=== PATIENT | male | born 1985 | race Caucasian/White ===

== ENCOUNTER 2024-05-22 07:47 | Emergency (ER) | payer BC, SELFPAY ==
[2024-05-22] VITALS (21 sets, daily range): BP systolic 124–166; BP diastolic 71–122
--- NOTE | 2024-05-22 08:16 | ED.GENMED ---
History of Present Illness
General
Chief Complaint: Chest Pain
Source: patient
Exam Limitations: none
Time Seen by Provider: 05/22/24 08:16
Nursing documentation reviewed up to this point in time: agreed with
History of Present Illness
History of Present Illness:
39-year-old male presents emergency department due to chest tightness for the past week. He was seen at [facility] last week and had a reported by the patient negative cardiac and PE workup. He was given a Z-Trip, he is not sure what it was for. He
coughed up blood twice today. He states his symptoms went away, but then came back yesterday.
Past History
Past History
ED Past Medical History: GERD
ED Past Surgical History: Other (Bilateral jaw surgery)
Social History
Tobacco: Vaping
Alcohol: Occasional
Drug: Marijuana
Personal:
Living: with family
Employment: Employed
Review of Systems
Review of Systems
Allergies reviewed?: Yes
All Other Systems: Not applicable
Constitutional: Reports no symptoms
EENT: Reports no symptoms
Respiratory: Reports trouble breathing
Cardiac: Reports chest pain
ABD/GI: Reports no symptoms
: Reports no symptoms
Musculoskeletal: Reports no symptoms
Skin: Reports no symptoms
Neurological: Reports no symptoms
Endocrine: Reports no symptoms
Hematologic/Lymphatic: Reports no symptoms
Psychiatric: Reports no symptoms
Phy Exam
Physical Exam
Physical Exam:
Physical Exam
General: no apparent distress, not acutely ill
Neck: supple. no meningeal signs. normal posterior pharynx
Heart: s1/s2 regular rate and rhythm, no murmur. equal radial
pulses.
HEENT: Pupils equal round reactive to light, EOMI
Lungs: no acute respiratory distress. Mild wheezing in upper lung adams bilaterally
Abdomen: normal bowel sounds. not tender. no CVAT
Neuro: alert and oriented. no focal neurological deficits cranial nerves II through XII intact
Skin: no rash
Psychiatric: well kept. interactive and cooperative
Extremities: no edema. no calf tenderness. negative homans. good distal pulses
Scores
Heart Score for Chest Pain Patients
STEMI patient?: No
History: Moderately Suspicious
ECG: Normal
Age: </= 45 years
Risk Factors: 1 or 2 Risk Factors
Troponin: >1 - <3 x Normal Limit
Heart Score for Chest Pain Patients: 3
Heart Score Risk: 2.5% MACE over next 6 weeks
Course
Orders/Labs/Results
Orders:
Orders
05/22/24 07:48
EKG [Electrocardiogram (*1)] Urgent
Reason for Study: Chest Pain
EKG- Treatment ONCE
05/22/24 07:59
CXR2 [CR Chest - 2 Views ] Urgent
Comment:
Reason For Exam: chest pain
05/22/24 08:34
IV Insert/Care/Rem.- Treatment PRN
Ipratropium/Albuterol Sulfate [Duoneb] 3 ml INH R NOW STA
05/22/24 08:43
Complete Blood Count/With Diff Urgent
Comprehensive Metabolic Panel Urgent
D-Dimer Urgent
Troponin I Urgent
05/22/24 09:23
Aspirin Chewable [Low Strength Aspirin] 324 mg PO NOW STA
05/22/24 09:36
COVID-19 Antigen Urgent
Source: Nasal Swab
Influenza A+B Rapid Molecular Urgent
ZAIN Source: Nasal Swab
Specimen Description:
05/22/24 09:38
Records Request [Obtain Records] As Directed
Dates of Information to be Released: Most recent
Type of Information Requested: Discharge Summary
ECG/Cardiology Results
Obtain Records from: [facility]
05/22/24 09:39
Echo 2D MMode Color/Doppler Routine
Reason for Study: Chest pain
Comment: Covid and flu pending, can wait for result
05/22/24 10:28
Nitroglycerin Sublingual [Nitrostat (Sublingual)] 0.4 mg SL [id number] PRN
05/22/24 10:45
EKG [Electrocardiogram (*1)] Routine
Reason for Study: Chest Pain
Comment: With troponin level
05/22/24 10:47
NT-proBNP Urgent
Comment: ADD ON
Troponin I Urgent
05/22/24 11:30
Nitroglycerin Sublingual [Nitrostat (Sublingual)] 0.4 mg SL NOW STA
05/22/24 11:31
Ondansetron Injectable [Zofran] 4 mg IV NOW STA
05/22/24 11:50
Add On- LAB Urgent
Tests Added?: proBNP
05/22/24 13:12
Metoprolol [Lopressor] 5 mg IV NOW STA
05/22/24 13:31
Furosemide [Lasix] 20 mg IV ONCE ONE
Lisinopril [Zestril] 5 mg PO NOW STA
05/22/24 13:57
Metoprolol [Lopressor] 12.5 mg PO NOW STA
05/22/24 20:00
Metoprolol [Lopressor] 12.5 mg PO BID
Abnormal Lab Results
05/22/24 05/22/24
08:43 10:47
WBC 4.4 L 10^3/uL
(4.8-10.8)
Monocytes % 10.9 H %
(1.7-9.3)
Creatinine 0.5 L mg/dL
(0.7-1.3)
Glucose 105 H mg/dl
(70-99)
AST 112 H U/L
(17-59)
ALT 232 H U/L
(0-50)
Troponin I 0.073 H* ng/ml 0.066 H* ng/ml
05/22/24 08:43
05/22/24 08:43
Vital Signs
Initial and Last Documented VS:
Initial Vital Signs
Temp Pulse Resp BP Pulse Ox
97.8 F 96 18 166/122 98
05/22/24 07:49 05/22/24 07:49 05/22/24 07:49 05/22/24 07:49 05/22/24 07:49
Last Documented Vital Signs
Temp Pulse Resp BP Pulse Ox
97.8 F 105 23 148/114 98
05/22/24 07:49 05/22/24 15:15 05/22/24 15:15 05/22/24 15:10 05/22/24 07:49
MDM/Problems Addressed
Differential Diagnosis Includes:
ACS, PE, cardiomyopathy
MDM/Problems Addressed:
39-year-old male with chest pain, echocardiogram showing diffuse hypokinesis with a EF 40%. Patient seen by cardiology, Dr. Parker, who recommends further inpatient management. Patient however, declines admission and elects to sign out AMA. Will
prescribe lisinopril and metoprolol. Follow-up with primary care and cardiology.
Acute Exacerbation and/or Progression of Chronic Illness: Cardiomyopathy
*Radiology
Radiology exam reviewed: radiology read reviewed (Chest x-ray no acute findings)
*Pulse Oximetry
Patient hypoxic: no
*EKG
Interpreted by ED Provider?: Yes
EKG Intrepretation Date: 05/22/24
EKG Intrepretation Time: 07:52
Interpretation: abnormal
Comparison EKG: no comparison EKG present
Heart Rate: 88
Rate: normal
Rhythm: sinus
[place]: normal axis
Interval: normal interval
QRS Pattern: normal QRS
Ischemia: non-specific ST changes
*Steward/Stewardess Economy Class Interpretation
Rate: tachycardiac
Interpretation: abnormal
Heart Rate: 105
Rhythm: sinus tachycardia
*Critical Care Note
Total Time (30-74mins, 75-104mins- exclusive of procedures): 30
comment:
Critical care statement: A total of 30 minutes of critical care time was provided for this patient. This includes management of unstable vital signs, evaluation of the patient at bedside, reviewing the patient's pertinent medical records, discussion
with consultants, review of old EKGs and review of pertinent medical records. This time with separate from time utilized to perform the aforementioned documented procedures
Patient Management
Social determinants of health affecting care: Living situation, Substance abuse and Strong social support
Discussion with other providers: Wastewater Analyst Lab Analyst (Cardiology, Dr. Parker)
Escalation/DeEscalation of care consider admission/obs:
Admission indicated, however patient elects to leave AGAINST MEDICAL ADVICE
ED Attending Note
-
Portions of this chart may have been created with voice recognition software.� Occasional wrong word or��sound alike� substitutions may have occurred due to the inherent limitations of voice recognition software.
Discharge Plan
Departure
Patient Disposition: Against Medical Advice
Date of Disposition: 05/22/24
Time of Disposition: 15:37
Patient with high blood pressure during this ER visit?: Yes
Condition: Fair
Discharge Problem:
Chest pain
Instructions: Chest pain, BLOOD PRESSURE
Prescriptions:
New
lisinopril 5 mg tablet
5 mg PO DAILY Qty: 30 0RF
metoprolol tartrate 25 mg tablet
12.5 mg PO BID Qty: 30 0RF
Referrals:
Chava Parker MD [Active] - Call in 1-3 days for appt
Burak Vogt MD [Family Provider] - Call in 1-3 days for appt
Interventions
Interventions:
*Risk Screen - Suicide Last Done: 05/22/24 07:49
*General Assessment Last Done: 05/22/24 08:46
*Neglect/Abuse Screening Last Done: 05/22/24 07:49
*ED- Fall Risk Assessment Last Done: 05/22/24 08:46
*ED COVID-19 Vaccine History Last Done: 05/22/24 07:49
ED- Cardiac Assessment Last Done: 05/22/24 08:45
Discharge Date and Time
Print Language: FAROESE
[2024-05-22] MEDS: DUONEB 3 ML INH (08:43)
[2024-05-22 09:05] LABS: % Basophils 0.5 % (0-2); % Eosinophils 2.1 % (0-6); % Immature Granulocytes 0.2 % (0-0.5); % Lymphocytes 32.6 % (20.5-51.1); % Monocytes 10.9 % (1.7-9.3); % Neutrophils 53.7 % (42.2-75.2); Absolute Eosinophils 0.1 10^3/uL (0-0.7); Absolute Lymphocytes 1.4 10^3/uL (1.2-3.4); Absolute Monocytes 0.5 10^3/uL (0.1-0.6); Absolute Neutrophils 2.4 10^3/uL (1.4-6.5); D-Dimer 0.37 ug/mlFEU (0.00-0.50); Hematocrit 43.1 % (39.0-52.0); Hemoglobin 14.5 g/dL (13.0-18.0); Mean Corp Hgb Conc. 33.6 g/dL (33.0-37.0); Mean Corpuscular Hgb 29.7 pg (27.0-31.0); Mean Corpuscular Volume 88.3 fL (80.0-94.0); Mean Platelet Volume 10.4 fL (7.4-10.4); Nucleated Red Blood Cells % 0 % (-); Platelet Count 173 10^3/uL (130-400); Red Blood Cell Count 4.88 10^6/uL (4.70-6.10); Red Cell Dist. Width 14.1 % (11.5-14.5); White Blood Cell Count 4.4 10^3/uL (4.8-10.8)
[2024-05-22 09:08] LABS: ALT (SGPT) 232 U/L (0-50); AST (SGOT) 112 U/L (17-59); Albumin 4.7 g/dl (3.5-5.0); Alkaline Phosphatase 64 U/L (38-126); Blood Urea Nitrogen 19 mg/dl (9-20); Calcium 9.1 mg/dl (8.4-10.2); Carbon Dioxide 25 mmol/L (22-30); Chloride 102 mmol/L (98-107); Glucose 105 mg/dl (70-99); Sodium 140 mmol/L (135-145); Total Bilirubin 0.9 mg/dl (0.2-1.3); Total Protein 6.6 g/dl (6.3-8.2); eGFR > 60.00
[2024-05-22 09:22] LABS: Troponin I 0.073 ng/ml
[2024-05-22] MEDS: LOW STRENGTH ASPIRIN 324 MG PO (09:35)
[2024-05-22 10:10] LABS: COVID-19 Antigen Negative (Negative)
--- NOTE | 2024-05-22 10:13 | CON.CAR ---
Addendum entered and electronically signed by Chava Parker MD 05/22/24 10:54:
I saw and examined the patient.
The LODE MINER's note was reviewed and I agree with the note.
39-year-old male who presents with midsternal chest sensation says it feels like pressure and almost feels like he needs to bring up sputum. In addition he feels like he cannot take in a deep breath. Patient had similar symptoms 1 week ago and
went to [facility] his evaluation included a CT study which was reportedly negative for PE there was a question of whether the saw the hint of something in the right upper chest per his report was placed on antibiotics he says his symptoms
spontaneously resolved while he was in the ER and he felt fine the whole week until yesterday when he had recurrence of the chest sensation that was present all day long also sometimes felt like he needed to take a deep breath and today he felt like
he had sputum there he needed to cough up he coughed up some sputum with streaks of blood. He said some of the samples were half blood have sputum. No large volumes of blood with clot. No fever or other symptoms. No prior history of lung disease
and no prior history of cardiac disease. Blood pressure is elevated in the ER he says it is always high when he sees doctors or goes to the ER. ECG with nonspecific T wave abnormality labs notable for troponin 0.073 also elevated LFTs with AST
greater than 100 ALT greater than 200. Patient does drink alcohol a number of days per week. Commonly will have 2 drinkswhich sound like 4 servings of alcohol
-
Chest discomfort. Etiology unclear. Patient has some symptoms including cough with streaks of sputum which sound pulmonary in origin also reported to have faint wheezing on arrival and received neb treatment. Reportedly with a negative CT for PE
at [place] last week. Troponin mildly possibility of cardiac related chest discomfort also consideration. Would proceed as follows
-Obtain records from [place] including recent CT scan
-Check serial troponin including early troponin
-PPI
-Echocardiogram
-Treatment of hypertension
-Additional assessment of cough and hemoptysis as directed by primary team
.
Abnormal troponin. Etiology unclear. Evaluation noted above. Can continue aspirin but would hold off on addition of IV heparin with report of blood in sputum.
.
Cough.
- Chest x-ray unremarkable.
-COVID-negative
-Obtain prior CT
-Additional assessment by hospitalist
.
HTN -
- treatment initiated by ER will assess response
.
Elevated LFTs. Exact etiology unclear. Alcohol use may contribute. Patient did have some alcohol yesterday. Viral illness may also contribute
-Continue to monitor
-Additional assessment directed by hospitalist
Original Note:
Consultation
Consultation Request
Date/Time Consultation Requested: 05/22/2024 09:10
Date/Time Consultation Performed: 05/22/2024 09:45
Requesting Provider: Dr. Soriano
Performing Provider: MEAGAN Lang for Dr. Parker
Reason for Consultation: Shortness of breath
Medical History
-
Chief Complaint: Shortnes fo breath
History of Present Illness:
Kit Bermudez is a 39 year old year old male who presents with shortness of breath. He feels like there is a weight on his chest. This started yesterday. Nothing makes the discomfort better or worse. He had two episodes of hemoptysis at home prior
to arrival. He endorses a moist non productive cough.
He was seen at [place] last week (records requested). He had a PE study which he reports was negative. He is unsure of his discharge diagnosis. He was given a Z-Trip which he completed.
Past Medical History
Past Medical History: None
Social History
Tobacco: Vaping
Alcohol: Occasional
Drug: None
Personal: Partner (Engaged)
Employment: Employed (Teacher)
Family History
Family History: Reviewed & Not Pertinent (Denies early CAD and SCD.)
Allergies / Home Medications
Allergy/AdvReac Type Severity Reaction Status Date / Time
No Known Allergies Allergy Verified 05/22/24 07:58
�Medication �Instructions �Recorded �Confirmed �Type
No Meds [No Current Medications] 05/22/24 05/22/24 History
Review of Systems
-
History Source: Patient
All other systems: Negative unless noted
Constitutional: No Symptoms
EENT: No Symptoms
Respiratory: Cough, Hemoptysis and Trouble Breathing
Cardiac: Chest Pain ('heaviness')
Abdomen/GI: No Symptoms
: No Symptoms
Musculoskeletal: No Symptoms
Skin: No Symptoms
Neurological: No Symptoms
Endocrine: No Symptoms
Hematologic/Lymphatic: No Symptoms
Physical Exam
Vital Signs
Temp Pulse Resp BP Pulse Ox
97.8 F 75 16 162/120 98
05/22/24 07:49 05/22/24 09:45 05/22/24 10:04 05/22/24 09:38 05/22/24 07:49
Lab Results
05/22/24 08:43
05/22/24 08:43
Troponin I 0.073 ng/ml H* 05/22/24 08:43
Physical Exam
General: Well Developed, Well Nourished, No Apparent Distress and Comfortable
HEENT: Normocephalic, Anicteric and Moist Mucous Membranes
Respiratory: Clear and Non Labored Respirations
Cardiac: S1/S2 and Regular Rhythm; Negative Peripheral Edema
Breast: Deferred by me
GI: Soft, Non Tender, Non Distended and Normal Bowel Sounds
Rectal: Deferred by Provider
Genito-urinary: No Costovertebral Tender
Musculoskeletal: No Clubbing and No Cyanosis
Skin: Warm and Dry
Neuro: AO x 3
Hematologic/Lymphatic: No Lymphadenopathy
Psych: Calm
Impression / Plan
-
Shortness of breath
-No hypoxia
-Negative PE study last week
-CXR unremarkable
-Influenza & Covid 19 pending
-TTE pending
Abnormal troponin, type unknown
-Trend to peak
-EKG with troponin
HTN - NEW DIAGNOSIS per patient
-SL ordered
Transaminitis, denies abdominal pain
Data Reviewed
-
EKG: Report Reviewed by me
Labs: Labs Reviewed by me
Old Records: Requested
[2024-05-22] MEDS: NITROSTAT (SUBLINGUAL) 0.4 MG SL ×3 (10:30→11:41)
[2024-05-22 11:21] LABS: Troponin I 0.066 ng/ml
[2024-05-22] MEDS: ZOFRAN 4 MG IV (11:42)
[2024-05-22 13:06] LABS: NT-proBNP 611 pg/ml
[2024-05-22] MEDS: LOPRESSOR 5 MG IV (13:16)
[2024-05-22] MEDS: ZESTRIL 5 MG PO (14:33)
[2024-05-22] MEDS: LOPRESSOR 12.5 MG PO (14:34)
[2024-05-22] MEDS: LASIX 20 MG IV (14:34)
== END 2024-05-22 16:00 | disposition left against medical advice (07) ==
LOC: EMR 07:47
PROVIDERS: Nurse Practitioner Gerontology; EMERGENCY PHYSICIAN Emergency Medicine; FAMILY PHYSICIAN Family Medicine; OTHER PHYSICIAN Internal Medicine Cardiovascular Disease
DX: R07.89 Other chest pain (principal); I10 Essential (primary) hypertension; Z11.52 Encounter for screening for COVID-19; Z53.29 Procedure and treatment not carried out because of patient's decision for other reasons; F17.290 Nicotine dependence, other tobacco product, uncomplicated
CPT/HCPCS: 99291; 96374; 96375; 94640; 71046; 80053; 83880; 84484; 85025; 85379; 87502; 87811; 93005; 93306

== ENCOUNTER 2024-05-23 10:44 | Inpatient (IN) | payer BC, SELFPAY ==
[2024-05-23] VITALS (8 sets, daily range): BP systolic 92–153; BP diastolic 50–109; BMI 29.9; BMI 28.8
--- NOTE | 2024-05-23 08:25 | ED.GENMED ---
History of Present Illness
General
Chief Complaint: Chest Pain
Source: patient and records
Exam Limitations: none
Time Seen by Provider: 05/23/24 08:11
Nursing documentation reviewed up to this point in time: agreed with
History of Present Illness
History of Present Illness:
39-year-old male returns seen here yesterday with chest pain 2 indeterminate troponins, echocardiogram seen by cardiology apparently left AGAINST MEDICAL ADVICE had shortness of breath a week ago seen at [place] had a CT of the chest which was
reportedly negative he drinks alcohol does not smoke had chest pain yesterday no fever or chills, mild leg edema
Past History
Past History
ED Past Medical History: GERD
ED Past Surgical History: Other (Bilateral jaw surgery)
Social History
Tobacco: Vaping
Alcohol: Occasional
Drug: Marijuana
Personal:
Living: with family
Employment: Employed
Family History
Family History: Negative CAD or Sudden
Review of Systems
Review of Systems
All Other Systems: Not applicable
Constitutional: Reports fatigue
Respiratory: Denies cough or trouble breathing
Cardiac: Reports no symptoms
ABD/GI: Reports no symptoms
: Reports no symptoms
Phy Exam
Physical Exam
Physical Exam:
Physical Exam
General: no apparent distress, not acutely ill
Neck: No jaw
Heart: Tachycardia
Lungs: Crackles at the
Abdomen: Nontender
Neuro: alert and oriented. no focal neurological deficits
Skin: no rash
Psychiatric: well kept. interactive and cooperative
Extremities: Trace edema
Scores
Heart Score for Chest Pain Patients
STEMI patient?: Not applicable
Course
Orders/Labs/Results
Orders:
Orders
05/23/24 08:07
EKG [Electrocardiogram (*1)] Urgent
Reason for Study: CAD
Other Reason for Exam: elevated troponin yesterday
EKG- Treatment ONCE
05/23/24 08:17
Complete Blood Count/With Diff Urgent
Comprehensive Metabolic Panel Urgent
Magnesium Urgent
Troponin I Urgent
05/23/24 08:28
Aspirin 325 mg PO NOW STA
CR Chest - 2 Views Urgent
Comment:
Reason For Exam: cp
05/23/24 08:29
CARDIOLOGY CONSULT Routine
Consulting Provider: Ignacio Martinez
Was physician already notified: Yes
05/23/24 08:40
Furosemide [Lasix] 40 mg IV NOW STA
Vital Signs
Initial and Last Documented VS:
Initial Vital Signs
Temp Pulse Resp BP Pulse Ox
98.6 F 104 16 123/91 96
05/23/24 08:01 05/23/24 08:01 05/23/24 08:01 05/23/24 08:01 05/23/24 08:01
Last Documented Vital Signs
Temp Pulse Resp BP Pulse Ox
98.6 F 104 16 123/91 96
05/23/24 08:01 05/23/24 08:01 05/23/24 08:01 05/23/24 08:01 05/23/24 08:01
MDM/Problems Addressed
Differential Diagnosis Includes:
ACS cardiomyopathy ischemic nonischemic viral
MDM/Problems Addressed:
Abnormal troponin abnormal echocardiogram
*Radiology
Radiology exam reviewed: preliminary read by ED provider
*Pulse Oximetry
Patient hypoxic: no
*EKG
Interpreted by ED Provider?: Yes
Interpretation: abnormal
Comparison EKG: no changes
Heart Rate: 98
Rate: normal
Rhythm: sinus
Ischemia: T-wave inversion
*Merit System Director Interpretation
Rate: tachycardiac
Interpretation: abnormal
Heart Rate: 104
Rhythm: sinus
*Critical Care Note
Total Time (30-74mins, 75-104mins- exclusive of procedures): Not Applicable
Data Reviewed
Review of Other/Old Records Reveals: Labs
Source: patient, records and physician
Update Note
Update Note:
Update patient with new cardiomyopathy hypertension he does drink alcohol LFTs were up briefly reviewed with cardiology recommended admission to the hospitalist service will be worked up currently he had CT scan recently at [place] will try to
track that down
ED Attending Note
-
Portions of this chart may have been created with voice recognition software.� Occasional wrong word or��sound alike� substitutions may have occurred due to the inherent limitations of voice recognition software.
Discharge Plan
Departure
Patient Disposition: Admit
Date of Disposition: 05/23/24
Time of Disposition: 08:46
Admit to: Telemetry
Presentation/result/management discussed w/ accepting MD/DO: Hospitalist
Patient with high blood pressure during this ER visit?: Yes
Condition: Fair
Discharge Problem:
CHF (congestive heart failure)
Prescriptions:
No Action
lisinopril 5 mg tablet
5 mg PO DAILY Qty: 30 0RF
metoprolol tartrate 25 mg tablet
12.5 mg PO BID Qty: 30 0RF
Referrals:
Burak Vogt MD [Family Provider] -
Interventions
Interventions:
*Risk Screen - Suicide Last Done: 05/23/24 08:01
*Neglect/Abuse Screening Last Done: 05/23/24 08:01
Discharge Date and Time
Print Language: ALBANIAN
[2024-05-23] MEDS: ASPIRIN 325 MG PO (09:05)
[2024-05-23 09:23] LABS: % Basophils 0.5 % (0-2); % Eosinophils 0.3 % (0-6); % Immature Granulocytes 0.3 % (0-0.5); % Lymphocytes 10.6 % (20.5-51.1); % Monocytes 7.6 % (1.7-9.3); % Neutrophils 80.7 % (42.2-75.2); Absolute Lymphocytes 0.8 10^3/uL (1.2-3.4); Absolute Monocytes 0.6 10^3/uL (0.1-0.6); Absolute Neutrophils 6.2 10^3/uL (1.4-6.5); Hematocrit 44.2 % (39.0-52.0); Hemoglobin 14.8 g/dL (13.0-18.0); Mean Corp Hgb Conc. 33.5 g/dL (33.0-37.0); Mean Corpuscular Hgb 29.6 pg (27.0-31.0); Mean Corpuscular Volume 88.4 fL (80.0-94.0); Mean Platelet Volume 10.6 fL (7.4-10.4); Nucleated Red Blood Cells % 0 % (-); Platelet Count 176 10^3/uL (130-400); Red Cell Dist. Width 14.2 % (11.5-14.5); White Blood Cell Count 7.7 10^3/uL (4.8-10.8)
[2024-05-23 09:33] LABS: ALT (SGPT) 248 U/L (0-50); AST (SGOT) 163 U/L (17-59); Albumin 4.8 g/dl (3.5-5.0); Alkaline Phosphatase 53 U/L (38-126); Blood Urea Nitrogen 34 mg/dl (9-20); Calcium 9.2 mg/dl (8.4-10.2); Carbon Dioxide 26 mmol/L (22-30); Chloride 98 mmol/L (98-107); Estimated Creatinine Clearance 79 ml/min; Glucose 173 mg/dl (70-99); Magnesium 1.6 mg/dl (1.6-2.3); Potassium 3.7 mmol/L (3.5-5.1); Sodium 138 mmol/L (135-145); Total Protein 6.8 g/dl (6.3-8.2); eGFR > 60.00
[2024-05-23 09:50] LABS: Troponin I 0.053 ng/ml
--- NOTE | 2024-05-23 10:06 | CM ---
Patient seen at bedside in ED with physician. patient stated that he lives with his fiance in a 3 story home. Patient has no prior need for DME, VN needs. Patient PCP is Dr. Vogt and he uses the [facility] on if needed for pharmacy needs. Patient
denied any needs at this time. CM will continue to follow for discharge planning needs.
Plan; home with no needs anticipated
--- NOTE | 2024-05-23 10:09 | HPS.HSE ---
Family Physician
-
Family Physician: Burak Vogt
Chief Complaint
-
Chest tightness, shortness of breath
History of Present Illness
Patient is a 39-year-old male who was seen in the emergency room yesterday 05/22/2024 for chest tightness and shortness of breath. During his ED workup he was found to have a depressed ejection fraction of 40% and thought to be having new onset
congestive heart failure. Patient was recommended for admission however, he left AGAINST MEDICAL ADVICE. Patient stated that he had a meeting for work that he HAD to attend. He returns today with the same complaints and presents for admission.
Medical History
Past Medical History
Past Medical History: Reports None
Past Surgical History: Reports Other
Additional Past Surgical History:
Jaw surgery in 2007
Social History
Tobacco: Non-smoker
Alcohol: Other (Patient admits to a few drinks daily a few nights a week)
Drug: None
Personal: Other (Engaged)
Living: With Family
Employment: Employed
Family History
Family History: Other (Father of cancer in 2008 history of coronary artery disease or sudden cardiac )
Allergies / Home Medications
Allergies reflects when Allergies were last updated in [employer].
Home Medications with original date entered in [employer]
Allergy/Medication List:
Allergies
Allergy/AdvReac Type Severity Reaction Status Date / Time
No Known Allergies Allergy Verified 05/23/24 08:00
Home Medications
lisinopril 5 mg tablet 5 mg PO DAILY 05/23/24
metoprolol tartrate 25 mg tablet 12.5 mg PO BID 05/23/24
Review of Systems
-
History Source: Patient
A 12 point ROS was completed and negative except as noted: Yes
Constitutional: Reports No Symptoms
EENT: Reports No Symptoms
Respiratory: Reports Trouble Breathing
Cardiac: Reports Chest Pain (Describes as tightness)
Abdomen/GI: Reports No Symptoms
: Reports No Symptoms
Musculoskeletal: Reports No Symptoms
Skin: Reports No Symptoms
Neurological: Reports No Symptoms
Hematologic/Lymphatic: Reports No Symptoms
Psych: Reports No Symptoms
Physical Exam
Vital Signs
Vital Signs
Temp Pulse Resp BP Pulse Ox
98.6 F 84 14 102/56 96
05/23/24 08:01 05/23/24 09:45 05/23/24 09:45 05/23/24 09:32 05/23/24 08:01
Physical Exam
General: Well Developed, Well Nourished and No Apparent Distress
HEENT: NormoCephalic and Anicteric; No Oxygen
Respiratory: Clear; No Wheezes, Rales, Rhonchi or Crackles
Cardiac: S1/S2 and Regular Rhythm; No Murmur
GI: Soft, Non Tender, Non Distended and Normal Bowel Sounds
Musculoskeletal: No Clubbing, No Cyanosis and No Edema
Skin: Warm
Neuro: Awake and Alert
Psych: Calm
Laboratory Results
-
05/23/24 09:14
05/23/24 09:14
Laboratory Results
Total Bilirubin 1.0 mg/dl (0.2-1.3) 05/23/24 09:14
AST 163 U/L (17-59) H 05/23/24 09:14
ALT 248 U/L (0-50) H 05/23/24 09:14
Alkaline Phosphatase 53 U/L (38-126) 05/23/24 09:14
Troponin I 0.053 ng/ml H* 05/23/24 09:14
Impression/Plan
-
pt is a 39 year old male
New onset cardiomyopathy/heart failure with mildly reduced ejection fraction--possibly due to alcohol--ADMIT to tele--echocardiogram was done yesterday in the emergency department--would hold on further diuresis given his creatinine is now 1.4--will
add metoprolol with parameters--consult cardiology
Acute kidney injury--this is likely a combination of Lasix, lisinopril, metoprolol that he received yesterday in the emergency department along with relative hypotension as a result--blood pressure systolic is not above 100 consistently so we will
hold medications or provide parameters--would consider small dose of normal saline--also consider renal consult
Alcohol use--patient states that he drinks a few drinks daily a few nights per week--he says that this is not a daily occurrence and has no issues if he does not drink alcohol--this very well may be the cause of his cardiomyopathy--we will add
thiamine and folate--I do not believe he needs MSAS protocol at this time--no evidence of DTs
DVT prophylaxis--Lovenox
CODE STATUS--full code
--- NOTE | 2024-05-23 10:11 | EDRN ---
Provider notifoied of critical value troponin.
[2024-05-23] MEDS: NSS 250 IV (10:43)
--- NOTE | 2024-05-23 11:21 | W.PN.CD ---
Addendum entered and electronically signed by Ignacio Martinez MD 05/23/24 17:01:
I saw and examined the patient.
The AFFILIATE MARKETING SPECIALIST's note was reviewed and I agree with the note.
Comment: He is feeling better returned to complete his work up of new CMY. He appears euvolemic and given EDYTA with his correction BP and fluid removal. Will arrange R/LHC tomorrow. Start GDMT as able. Holding ACEI due to edyta. In evaluation of
etiologies will check tox screen. Recommend an Cardiac MRI if cath normal as an outpatient.
Original Note:
Today's Communication / Plan
-
-adjust metoprolol to XL
-RHC and LHC in AM if renal function improved
Impression / Plan
-
Patient is a 39 year old year old male with no previous PMH, but went to [facility] about 1 week ago for SOB and was placed on antibiotic course. Then, he had SOB again Tuesday- Tuesday. There were reports of hemoptysis as well. He denies any CP for
me, he just says it felt in his chest like he can't get a good breath. He came to the ER yesterday. His BP was severely elevated. He was given nitro, metoprolol, lisinopril, and Lasix. His EF was seen to be 40%. He left AMA since he had to get to
something for work. He is now back and feeling fine. No more SOB. BP on low end and getting small bolus of fluids. Will request records from [facility].
Cardiomyopathy EF 40%:
-type unknown
-denies family hx SCD or early CAD. Does not use tobacco. Occasionally vapes marijuana. Denies hx HTN, DM, HLD. Check lipids and hgbA1C. Normally active without issue.
-needs ischemic evaluation, but would not do today with EDYTA- will plan for tomorrow pending AM labs
-GDMT as able (holding off on ACEI/ARB/ARNI/MRA right now with EDYTA). Will adjust metoprolol to XL, and keep hold parameters.
-does not appear overloaded. Per radiology report today, pulmonary edema resolved.
-will check urine tox screen for completeness
Abnormal troponin:
-type unknown
-trending down
-0.073 was highest
-eval as above
EDYTA:
-after getting IV lasix, ACEI, BB, nitro and now BP's on low end
-getting gentle fluids, hold off on lasix and ACEI for now
Elevated LFT's:
-ETOH-related?
-follow
ETOH:
-reports ETOH 4-5 days per week with 2-3 mixed drinks
-we reviewed that abstinence is best
BP issues:
-severely elevated yesterday, now on low end
-monitor here and adjust meds as appropriate
Physical Exam
Vital Signs/Labs
Vital Signs
Temp Pulse Resp BP Pulse Ox
98.6 F 73 20 95/67 96
05/23/24 08:01 05/23/24 10:00 05/23/24 10:00 05/23/24 10:00 05/23/24 08:01
05/22/24 05/23/24 05/24/24
06:59 06:59 06:59
Actual Weight 99.79 kg
05/23/24 09:14
05/23/24 09:14
Magnesium 1.6 mg/dl (1.6-2.3) 05/23/24 09:14
LAB Results
05/23/24
09:14
Troponin I 0.053 H*
Physical Exam
Constitutional: No acute distress
EENT: Anicteric
Cardiovascular: Rhythm & rate is regular
Respiratory: Respiratory effort normal and Lungs clear to auscul.
Neuro/Psych: AO x 3
Data Reviewed
-
Date of Service: May 23, 2024
EKG: Tracing Personally Visualized and interpreted (SR with )
Labs: Labs Reviewed by me
[2024-05-23] MEDS: VITAMIN B1 100 MG PO (11:53)
[2024-05-23] MEDS: FOLVITE 1 MG PO (11:53)
[2024-05-23 12:36] LABS: NT-proBNP 804 pg/ml
[2024-05-23 13:37] LABS: Amphetamines Negative (Negative); Barbiturates Negative (Negative); Benzodiazepines Negative (Negative); Buprenorphine Negative (Negative); Cocaine Negative (Negative); Marijuana Negative (Negative); Methadone Positive (Negative); Methamphetamines Negative (Negative); Opiates Negative (Negative); Phencyclidine Negative (Negative); Tricyclic Antidepressants Negative (Negative)
[2024-05-23 14:01] LABS: Fentanyl, Urine Negative (Negative)
[2024-05-23] MEDS: TOPROL XL 25 MG PO (14:03)
[2024-05-23 16:22] LABS: Troponin I 0.048 ng/ml
[2024-05-23 22:00] LABS: Troponin I 0.046 ng/ml
[2024-05-23] MEDS: ATIVAN 1 MG PO (22:32)
[2024-05-24] VITALS (15 sets, daily range): BP systolic 136–163; BP diastolic 95–118; BMI 28.0
[2024-05-24 03:06] LABS: Hematocrit 46.3 % (39.0-52.0); Hemoglobin 15.8 g/dL (13.0-18.0); Mean Corp Hgb Conc. 34.1 g/dL (33.0-37.0); Mean Corpuscular Hgb 30.1 pg (27.0-31.0); Mean Corpuscular Volume 88.2 fL (80.0-94.0); Platelet Count 184 10^3/uL (130-400); Red Blood Cell Count 5.25 10^6/uL (4.70-6.10); Red Cell Dist. Width 13.8 % (11.5-14.5); White Blood Cell Count 6.5 10^3/uL (4.8-10.8)
[2024-05-24 03:33] LABS: ALT (SGPT) 211 U/L (0-50); AST (SGOT) 96 U/L (17-59); Albumin 4.2 g/dl (3.5-5.0); Alkaline Phosphatase 50 U/L (38-126); Blood Urea Nitrogen 32 mg/dl (9-20); Calcium 9.8 mg/dl (8.4-10.2); Carbon Dioxide 28 mmol/L (22-30); Chloride 101 mmol/L (98-107); Estimated Creatinine Clearance > 125 ml/min; Glucose 94 mg/dl (70-99); HDL Cholesterol 90 mg/dl; LDL Cholesterol, Calculated 130 mg/dl; Magnesium 1.9 mg/dl (1.6-2.3); Potassium 4.2 mmol/L (3.5-5.1); Sodium 138 mmol/L (135-145); Total Bilirubin 1.6 mg/dl (0.2-1.3); Total Cholesterol 233 mg/dl (50-199); Total Protein 6.4 g/dl (6.3-8.2); Triglyceride 65 mg/dl (10-149); Very Low Density Lipoprotein 13 mg/dl (0-30); eGFR > 60.00
[2024-05-24 03:53] LABS: Troponin I 0.058 ng/ml
[2024-05-24 04:01] LABS: TSH Reflex To Free T4 4.87 uIU/ml (0.47-4.68)
[2024-05-24 04:32] LABS: Free T4 1.11 ng/dl (0.78-2.19)
--- NOTE | 2024-05-24 04:45 | PTCARENOTE ---
Notified House Provider Argelia Rdz about pt's troponin bump of 0.058, up from previous ones. No new orders at this time.
--- NOTE | 2024-05-24 07:09 | W.PN.CD ---
Today's Communication / Plan
-
Cardiac catheterization today.
Drum Tender regarding EtOH, illicit drug use given GDMT.
MSAS if not already in place.
Impression / Plan
-
Impression/Plan: 39 y/o male with some shortness in breath, now improved, found to have systolic cardiomyopathy and elevated troponin.
#Cardiomyopathy
-New diagnosis.
-LVEF 40%
-Type unknown, denies family hx SCD or early CAD. Does not use tobacco. Occasionally vapes marijuana. Denies hx HTN, DM, HLD. Check lipids and hgbA1C. Normally active without issue.
-GDMT as able (holding off on ACEI/ARB/ARNI/MRA right now with EDYTA). Will adjust metoprolol to XL, and keep hold parameters.
-does not appear overloaded. Per radiology report today, pulmonary edema resolved.
-UDS + for methadone. If he does have a history of drug abuse, we must be cautious about medication choices (i.e. no beta tammy for cocaine use).
-Cath today.
#Abnormal troponin:
-Acute, without chest pain.
-Stuttering pattern without consistent rise/fall.
-0.073 was highest.
-Ischemic evaluation as above.
#EDYTA:
-Resolved.
#Elevated LFT's:
-Presumably acute (or at least never documented).
-AST/ALT trending down, bilirubin up to 1.6 this morning.
#ETOH:
-Chroni, reports ETOH 4-5 days per week with 2-3 mixed drinks.
-He will now require absolute EtOH abstinence.
-He appears tremulous. I suspect he may be going into withdrawal.
#BP issues:
-Stabilizing.
-He is a little hypertensive.
Subjective/Interval History:
Weight is down 2.5 kg from yesterday in the absence of diuretics.
Moderately hypertensive this morning (150's).
Stuttering, low level troponin.
CXR shows resolution of pulmonary edema pattern.
UDS is positive for methadone.
DATA:
Transthoracic Echocardiogram, 05/23/2024:
CONCLUSIONS
Mild to moderately reduced left vVentricular systolic function.
Estimated Left ventricular ejection fraction is 40% .
Mild mitral regurgitation.
Trace tricuspid regurgitation.
Physical Exam
Vital Signs/Labs
Vital Signs
Temp Pulse Resp BP Pulse Ox
36.6 C 107 16 152/113 100
05/24/24 03:00 05/24/24 03:00 05/24/24 03:00 05/24/24 03:00 05/24/24 03:00
05/22/24 05/23/24 05/24/24
11:59 11:59 11:59
Actual Weight 98.928 kg 96.36 kg
05/24/24 02:37
05/24/24 02:37
Magnesium 1.9 mg/dl (1.6-2.3) 05/24/24 02:37
Triglycerides 65 mg/dl (10-149) 05/24/24 02:37
LDL Cholesterol, Calc 130 mg/dl 05/24/24 02:37
VLDL Cholesterol, Calc 13 mg/dl (0-30) 05/24/24 02:37
HDL Cholesterol 90 mg/dl 05/24/24 02:37
Free T4 1.11 ng/dl (0.78-2.19) 05/24/24 02:37
05/23/24
09:14
Qkv-E-Qhougrqvone Pept 804
LAB Results
05/23/24 05/23/24 05/23/24
09:14 15:30 21:15
Troponin I 0.053 H* 0.048 H* 0.046 H*
05/24/24
02:37
Troponin I 0.058 H* D
Physical Exam
Constitutional: Comfortable and Other (Appears mildly tremulous.)
EENT: Anicteric and Moist mucous membranes
Cardiovascular: Rhythm & rate is regular, Pedal edema is absent, JVD pressure is normal, S1S2 is normal and Murmur/rub/gallop absent
Respiratory: Respiratory effort normal, Lungs clear to auscul., Wheeze Absent, Crackles Absent and Rhonchi Absent
GI: Soft, Distention absent, Flat, Non tender and Normal bowel sounds
Neuro/Psych: AO x 3
Data Reviewed
-
Date of Service: May 24, 2024
Medical Decision Making: Reviewed Test Results, Independent Historian Assessment and Test Interpretation
EKG: Tracing Personally Visualized and interpreted and Report Reviewed by me
Echo: Report Reviewed by me
X-Ray/CT/US/MRI/NUC/PET: Image Personally Visualized and interpreted and Report Reviewed by me
Labs: Labs Reviewed by me
Old Records: Reviewed
[2024-05-24] MEDS: VITAMIN B1 100 MG PO (07:36)
[2024-05-24] MEDS: LOW STRENGTH ASPIRIN 81 MG PO (07:36)
[2024-05-24] MEDS: TOPROL XL 25 MG PO ×2 (07:37→20:30)
[2024-05-24] MEDS: FOLVITE 1 MG PO (07:37)
[2024-05-24 09:20] LABS: Glycohemoglobin (HgbA1c) 5.4 % (4.0-5.6)
--- NOTE | 2024-05-24 09:34 | PN.CDI ---
CDI
- -
CDI:
Physician Documentation Request
Admit Date: 05/23/24 10:44
Dear Doctor Joel,
Please review the following and provide your response in the progress notes.
Clinical Indicators:
Laboratory Tests
05/23/24 05/23/24 05/23/24
09:14 15:30 21:15
Troponin I 0.053 H* 0.048 H* 0.046 H*
05/24/24
02:37
Troponin I 0.058 H* D
Based on the above and your clinical assessment, please clarify in the progress notes, the appropriate diagnosis, if significant, that supports the above abnormalities and additional evaluation, monitoring and/or treatment rendered:
Non ischemic myocardial injury
Abnormal lab value, clinically insignificant
Other(please specify)
Use of terms such as suspected, likely, concern for, or probable (associated with a specific diagnosis that is being evaluated, monitored, or treated as if it exists) are acceptable and can be coded in the inpatient setting, when documented at the
time of discharge.
Thank you,
Abigail Beckham RN BSN CCDS
CDI Specialist
Please contact via tiger text
Please use your independent medical judgment in providing your response.
--- NOTE | 2024-05-24 10:26 | W.PN.HOSP.TC ---
Today's Communication/Plan
-
await cardiac cath
Assessment / Plan
Assessment / Plan
pt is a 39 year old male
New onset cardiomyopathy/heart failure with mildly reduced ejection fraction--possibly due to alcohol---echocardiogram was done 05/22 in the emergency department EF 40%--will add metoprolol with parameters--apprec cardiology--for cardiac cath today
abnormal troponin--too early to say what the cause is as hasn't had his cardiac cath yet
Acute kidney injury--this is likely a combination of Lasix, lisinopril, metoprolol that he received 05/22 in the emergency department along with relative hypotension as a result--s/p small dose of normal saline--resolved back to baseline
Alcohol use--patient states that he drinks a few drinks daily a few nights per week--he says that this is not a daily occurrence and has no issues if he does not drink alcohol--this very well may be the cause of his cardiomyopathy--we will add
thiamine and folate--I do not believe he needs MSAS protocol at this time--no evidence of DTs
DVT prophylaxis--Lovenox
CODE STATUS--full code
Anticipated Discharge: Within 24 hours
Subjective/Interval History
-
Date of Service: May 24, 2024
pt feels OK--waiting for cath
Objective Data
-
Labs:
Laboratory Results
05/24/24
02:37
WBC 6.5
Hgb 15.8
Hct 46.3
Plt Count 184
Sodium 138
Potassium 4.2
Chloride 101
Carbon Dioxide 28
BUN 32 H
Creatinine 0.7
Glucose 94
Calcium 9.8
Total Bilirubin 1.6 H
AST 96 H
ALT 211 H
Alkaline Phosphatase 50
Vital Signs:
max temp for 24 hours
05/23/24
19:25
Temp 98.5 F
Vital Signs
Temp Pulse Resp BP Pulse Ox
97.9 F 94 18 147/111 99
05/24/24 07:29 05/24/24 07:37 05/24/24 07:29 05/24/24 07:37 05/24/24 07:29
I&O
05/23/24 05/24/24 05/25/24
06:59 06:59 06:59
Intake Total 500 / 500
Output Total 1135 / 1135
Balance -635 / -635
Review of Systems
-
All other systems: Reviewed and negative
Physical Exam
-
General: Well Developed, Well Nourished and No Apparent Distress
HEENT: Normocephalic and Atraumatic
Respiratory: Clear to Auscultation; Negative Wheezes or Rhonchi
Cardiac: Regular Rhythm and S1/S2; Negative Murmur
GI: Soft, Nontender, Nondistended and Normal Bowel Sounds
Musculoskeletal: No Clubbing, No Cyanosis and No Edema
Neuro: Awake and Alert
Psych: Calm
--- NOTE | 2024-05-24 10:27 | CM ---
Addendum entered by Symone Noyola 05/24/24 16:11:
farxiga 40$ for 30 day supply and 80$ for 3 month same for Jardiance. CM updated patient family.
Original Note:
Patient seen at bedside with physician. Patient for cardiac cath today. Patient stated that he was hoping for discharge home today. CM will continue to follow for discharge planning needs.
Plan; home with no needs
--- NOTE | 2024-05-24 12:00 | ITS.CL.CATH ---
Co Director - Catheterization
Cardiac Catheterization
Procedure Report:
CARDIAC CATHETERIZATION REPORT
Date of Procedure: 05/24/2024
Referring: Abigail Martinez M.D.
Indication: New cardiomyopathy.
PROCEDURE:
1. Right heart catheterization.
2. Coronary angiography.
3. Left heart catheterization.
4. Administration of IV metoprolol for paroxysmal supraventricular tachycardia.
A total of 14 minutes of procedural/moderate sedation was utilized. An independent medical lab director was present to assist with and help manage the patient's level of consciousness and physiologic status.
ACCESS:
1. 6 [place] right rate artery using a modified Seldinger technique.
2. 5 [place]ian right antecubital vein through a previously placed IV.
CATHETERS:
1. 5 [place]itanian balloon wedge.
2. 5 [place]ian JR4.
3. 5 [place]ian JL 3.5.
HEMODYNAMIC DATA
Weight (kg): 92.6
AO (s/d/x, mmHg): 155/118/135
LV (s/x, mmHg): 156/15 (A wave to 29)
PCWP (a/v/x, mmHg): 32/34/24
PA (s/d/x, mmHg): 43/23/30
RV (s/x, mmHg): 43/6
RA (a/v/x, mmHg): 11/8/6
SVC SvO2 (%): 79.3
IVC SvO2 (%): Not obtained.
RA SvO2 (%): Not obtained.
RV SvO2 (%): Not obtained.
PA SvO2 (%): 73.3
SaO2 (%): 98.3
Hbg (g/dL): 14.9
WERNER
CO (L/min): 5.78
CI (L/min/m2): 2.62
Thermodilution
CO (L/min): Not performed.
CI (L/min/m2): Not performed.
TPG (mmHg): 6
PVR (Whitlock Units): 1.04
SVR (dynes*seconds*cm^-5): 1785
AVO2 Diff (Volume %): 5.07
AV gradient (x, mmHg): None.
AV area (cm2): Normal.
MV gradient (x, mmHg): Not obtained.
MV area (cm2): Not obtained.
LEFT VENTRICULOGRAPHY: Not performed.
AORTOGRAPHY: Not performed.
CORONARY ANGIOGRAPHY
Dominance: Right.
Left Main: Large size, bifurcating vessel. There is no coronary artery disease.
LAD: Enormous vessel giving rise to 2 significant diagonals before wrapping around the apex and supplying the inferior interventricular septum. There is no coronary artery disease.
Ramus: Congenitally absent.
Circumflex: Large size, nondominant vessel giving rise to 2 obtuse marginals. OM1 is a 2 mm vessel arising very high off of the circumflex. OM 2 is a large vessel supplying the majority of the lateral and inferolateral wall. There is no
coronary artery disease.
RCA: Large size, dominant vessel with an anterior origin that is difficult to cannulate and a large posterolateral branch. There is no coronary artery disease.
INTERVENTIONS
1. IV metoprolol for termination of paroxysmal supraventricular tachycardia.
Narrative:
During the procedure, the patient lapsed into a narrow complex, reentrant tachycardia on telemetry. He did admit to palpitations but was hemodynamically stable. The patient was given 5 mg of IV metoprolol with adenosine on standby. Approximately
6 minutes after infusing the metoprolol, the patient's heart rhythm resolved into normal sinus rhythm.
Closure Device: Vascular band for the right radial artery, manual pressure for the right antecubital vein.
Radiation dose (mGy): 331.85
DAP (cm2.Gy): 21.5440
Fluoroscopy time (minutes): 4.5
CONCLUSIONS:
1. Right dominant circulation with an anterior origin of the RCA that is difficult to cannulate and no coronary artery disease.
2. Significant diastolic dysfunction with discrepant filling pressures (LVEDP = 15 mmHg, PCWP = 24 mmHg, A wave to 29 mmHg) without significant valvular disease.
3. Preserved systolic function (cardiac index = 2.62 L/min/m�).
4. Mild, postcapillary pulmonary hypertension (mean PA = 30 mmHg, cardiac output = 5.78 L/min, PVR = 1.04 Whitlock units).
5. Significant peripheral arterial resistance (SVR = 1785 dynes*seconds*cm^-5).
6. Paroxysmal supraventricular tachycardia, terminated with metoprolol.
RECOMMENDATIONS:
1. Expectant management after cardiac catheterization via right radial/antecubital approach.
2. Limited weight bearing on the right wrist for one week.
3. GDMT as hemodynamics will tolerate. His heart rate/systolic function will benefit from beta-blockade. SVR will benefit from KRITSIAN inhibitor/ARB/ARNI. LV rigidity will benefit from SGLT2 inhibitors.
4. Careful monitoring with anticipation of alcohol withdrawal. I informed him that he must be entirely abstinent.
Copy to: Abigail Martinez M.D., Burak Vogt M.D.
Gustavo Cassidy DO, FACC, FACP
[2024-05-24] MEDS: NSS (PRESERVATIVE FREE) 0.25 ML IV ×2 (13:25→20:35)
[2024-05-24] MEDS: ATIVAN 0.5 MG IV ×2 (13:25→20:35)
[2024-05-24] MEDS: APRESOLINE 5 MG IV ×2 (17:05→20:30)
[2024-05-24] MEDS: ATIVAN 1 MG PO (18:04)
[2024-05-24 18:08] LABS: GGTP 178 U/L (15-73); Magnesium 1.8 mg/dl (1.6-2.3); Phosphorus 3.4 mg/dl (2.5-4.5)
[2024-05-24 18:14] LABS: B-Hydroxybutyrate 1.13 mmol/L (0.02-0.27)
[2024-05-24 18:24] LABS: INR 0.89; PT 12.6 Sec (11.4-14.6)
--- NOTE | 2024-05-24 21:00 | PTCARENOTE ---
Pt transferred to IVU via wheelchair with belongings. Handoff of monitored pt performed.
[2024-05-25] VITALS (13 sets, daily range): BP systolic 130–145; BP diastolic 90–114; BMI 28.0
[2024-05-25] MEDS: APRESOLINE IV ×3 (00:39→20:58)
[2024-05-25 05:44] LABS: Blood Urea Nitrogen 27 mg/dl (9-20); Calcium 9.8 mg/dl (8.4-10.2); Carbon Dioxide 26 mmol/L (22-30); Chloride 101 mmol/L (98-107); Estimated Creatinine Clearance > 125 ml/min; Glucose 113 mg/dl (70-99); Sodium 138 mmol/L (135-145); eGFR > 60.00
[2024-05-25] MEDS: APRESOLINE 5 MG IV ×3 (05:50→17:26)
[2024-05-25] MEDS: DIOVAN 40 MG PO (08:04)
[2024-05-25] MEDS: VITAMIN B1 100 MG PO (08:04)
[2024-05-25] MEDS: TOPROL XL 50 MG PO ×2 (08:04→20:56)
--- NOTE | 2024-05-25 08:58 | W.PN.CD ---
Today's Communication / Plan
-
restart metop and valsartan
renal artery u/s
Impression / Plan
-
Impression/Plan: 39 y/o male with some shortness in breath, now improved, found to have systolic cardiomyopathy and elevated troponin.
#Cardiomyopathy
-New diagnosis.
-LVEF 40%
-Type unknown, denies family hx SCD or early CAD. Does not use tobacco. Occasionally vapes marijuana. Denies hx HTN, DM, HLD. Check lipids and hgbA1C. Normally active without issue.
-GDMT as able (holding off on ACEI/ARB/ARNI/MRA right now with EDYTA). Will adjust metoprolol to XL, and keep hold parameters.
-does not appear overloaded. Per radiology report today, pulmonary edema resolved.
-UDS + for methadone. If he does have a history of drug abuse, we must be cautious about medication choices (i.e. no beta tammy for cocaine use).
-Cath no obstructive CAD diastolic dysfunction as below
- starting BB and valsartan
- pricing [id number]
#Abnormal troponin:
-Acute, without chest pain.
-Stuttering pattern without consistent rise/fall.
-0.073 was highest.
-Ischemic evaluation as above.
#EDYTA:
-Resolved.
#Elevated LFT's:
-Presumably acute (or at least never documented).
-AST/ALT trending down, bilirubin up to 1.6 this morning.
#ETOH:
-Chroni, reports ETOH 4-5 days per week with 2-3 mixed drinks.
-He will now require absolute EtOH abstinence.
-He appears tremulous. I suspect he may be going into withdrawal.
#BP issues:
-Stabilizing.
-Remains hypertensive starting BB and valsartan
- r/o renal artery stenosis
Subjective/Interval History:
Feeling much improved todya
DATA:
Cath May 24 2024: CONCLUSIONS:
1. Right dominant circulation with an anterior origin of the RCA that is difficult to cannulate and no coronary artery disease.
2. Significant diastolic dysfunction with discrepant filling pressures (LVEDP = 15 mmHg, PCWP = 24 mmHg, A wave to 29 mmHg) without significant valvular disease.
3. Preserved systolic function (cardiac index = 2.62 L/min/m�).
4. Mild, postcapillary pulmonary hypertension (mean PA = 30 mmHg, cardiac output = 5.78 L/min, PVR = 1.04 Whitlock units).
5. Significant peripheral arterial resistance (SVR = 1785 dynes*seconds*cm^-5).
6. Paroxysmal supraventricular tachycardia, terminated with metoprolol.
Transthoracic Echocardiogram, 05/23/2024:
CONCLUSIONS
Mild to moderately reduced left vVentricular systolic function.
Estimated Left ventricular ejection fraction is 40% .
Mild mitral regurgitation.
Trace tricuspid regurgitation.
Physical Exam
Vital Signs/Labs
Vital Signs
Temp Pulse Resp BP Pulse Ox
97.9 F 90 20 138/105 97
05/25/24 07:09 05/25/24 08:04 05/25/24 07:09 05/25/24 08:04 05/25/24 07:09
05/24/24 05/25/24 05/26/24
06:59 06:59 06:59
Actual Weight 212 lb 7 oz 211 lb 13.828 oz
05/24/24 02:37
05/25/24 04:52
PT 12.6 Sec (11.4-14.6) 05/24/24 17:44
INR 0.89 05/24/24 17:44
APTT 23.0 Sec (23.4-35.0) L 05/24/24 17:44
Magnesium 1.8 mg/dl (1.6-2.3) 05/24/24 17:44
Triglycerides 65 mg/dl (10-149) 05/24/24 02:37
LDL Cholesterol, Calc 130 mg/dl 05/24/24 02:37
VLDL Cholesterol, Calc 13 mg/dl (0-30) 05/24/24 02:37
HDL Cholesterol 90 mg/dl 05/24/24 02:37
Free T4 1.11 ng/dl (0.78-2.19) 05/24/24 02:37
05/23/24
09:14
Mzs-Q-Onmtwwggrim Pept 804
LAB Results
05/23/24 05/23/24 05/23/24
09:14 15:30 21:15
Troponin I 0.053 H* 0.048 H* 0.046 H*
05/24/24
02:37
Troponin I 0.058 H* D
Physical Exam
Constitutional: No acute distress and Comfortable
EENT: Anicteric
Cardiovascular: Rhythm & rate is regular and Pedal edema is absent
Respiratory: Respiratory effort normal and Lungs clear to auscul.
GI: Soft
Neuro/Psych: AO x 3
Other: Cath Site (soft )
Data Reviewed
-
Date of Service: May 25, 2024
Medical Decision Making: Reviewed Test Results
EKG: Tracing Personally Visualized and interpreted (sr)
Echo: Report Reviewed by me
Labs: Labs Reviewed by me
[2024-05-25 09:52] LABS: Troponin I 0.039 ng/ml
--- NOTE | 2024-05-25 10:15 | PTCARENOTE ---
Rec'd pt at handoff. Tele- SR. Pt has no complaints at this time. Plan of care reviewed w/ pt. Verbalizes understanding. Currently in bed; call candace w/in reach.
[2024-05-25] MEDS: FOLVITE 1 MG PO (10:31)
--- NOTE | 2024-05-25 10:43 | W.PN.HOSP.TC ---
Today's Communication/Plan
-
renal artery US
cont adjusting meds
hopeful d/c in AM Sat
Assessment / Plan
Assessment / Plan
pt is a 39 year old male
New onset cardiomyopathy/heart failure with mildly reduced ejection fraction--possibly due to alcohol---echocardiogram was done 05/22 in the emergency department EF 40%--adjusting metoprolol and valsartan with parameters--apprec cardiology-- cardiac
cath without obstructive CAD
nonischemic myocardial injury --peaked at 0.073
Acute kidney injury--this is likely a combination of Lasix, lisinopril, metoprolol that he received 05/22 in the emergency department along with relative hypotension as a result--s/p small dose of normal saline--resolved back to baseline
Alcohol use--patient states that he drinks a few drinks daily a few nights per week--he says that this is not a daily occurrence and has no issues if he does not drink alcohol--this very well may be the cause of his cardiomyopathy--cont thiamine and
folate--MSAS added with HTN, tachycardia, anxiety, mild tremors--early DTs --has been getting intermittent ativan
HTN--possibly secondary--getting renal artery US
DVT prophylaxis--Lovenox
CODE STATUS--full code
Anticipated Discharge: Within 24 hours
Subjective/Interval History
-
Date of Service: May 25, 2024
pt without c/o--much calmer today
Objective Data
-
Labs:
Laboratory Results
05/25/24
04:52
Sodium 138
Potassium 4.0
Chloride 101
Carbon Dioxide 26
BUN 27 H
Creatinine 0.7
Glucose 113 H
Calcium 9.8
Vital Signs:
max temp for 24 hours
05/24/24
23:04
Temp 98.4 F
Vital Signs
Temp Pulse Resp BP Pulse Ox
97.9 F 78 20 130/98 97
05/25/24 07:09 05/25/24 10:00 05/25/24 07:09 05/25/24 09:42 05/25/24 07:09
I&O
05/24/24 05/25/24 05/26/24
06:59 06:59 06:59
Intake Total 500 / 500 480 / 480
Output Total 1135 / 1135 925 / 925
Balance -635 / -635 -445 / -445
Review of Systems
-
All other systems: Reviewed and negative
Physical Exam
-
General: Well Developed, Well Nourished and No Apparent Distress
HEENT: Normocephalic and Atraumatic
Respiratory: Clear to Auscultation; Negative Wheezes or Rhonchi
Cardiac: Regular Rhythm and S1/S2; Negative Murmur
GI: Soft, Nontender, Nondistended and Normal Bowel Sounds
Musculoskeletal: No Clubbing, No Cyanosis and No Edema
Skin: Warm
Neuro: Awake
Psych: Calm
--- NOTE | 2024-05-25 10:55 | CM ---
Priced Farxiga and Jardiance per consult.
Prior CM had completed pricing.
Per note, estimated co payment is $40/mo.
Pt. would qualify for reduced monthly co pay of $10 (Jardiance) or $0 (Farxiga). Will place coupon in chart.
TT to Cardio MD to notify.
--- NOTE | 2024-05-25 13:47 | CM ---
CM following for DC planning needs.
Met w/ patient at bedside. Mother also present.
Reviewed estimated cost of Yenni Cabrera. Will place coupons in chart for use upon DC.
There are no other identified DC needs.
CM will, however, continue to follow for any needs that may arise.
--- NOTE | 2024-05-25 20:44 | PTCARENOTE ---
Pt received at beginning of shift sitting up in chair with family at bedside. Denies any CP at present time. VSS. Afebrile. SR/ST on CM. Right radial dressing c/d/i. Right brachial dressing intact + ecchymotic. Rest of assessment as documented. Pt
anxious to leave tomorrow. Call maria within reach. Will continue to monitor.
[2024-05-25] MEDS: ATIVAN 0.5 MG IV (21:02)
[2024-05-25] MEDS: NSS (PRESERVATIVE FREE) 0.25 ML IV (21:03)
[2024-05-25] MEDS: FLUSH (NSS) 2 FLUSH IV (21:03)
--- NOTE | 2024-05-25 23:10 | PTCARENOTE ---
Pt received at beginning of shift sitting up in chair with family at bedside. Denies any CP at present time. VSS. Afebrile. SR/ST on CM. Right radial dressing not intact. Site c/d/i. Pt does not want new dressing reapplied. Right brachial dressing
intact + ecchymotic. Rest of assessment as documented. Pt anxious to leave tomorrow. Call maria within reach. Will continue to monitor.
[2024-05-26 01:06] VITALS: BP 134/101
[2024-05-26] MEDS: APRESOLINE 5 MG IV ×2 (01:07→08:30)
[2024-05-26 04:13] VITALS: BMI 27.8
[2024-05-26 04:16] VITALS: BP 128/95
[2024-05-26] MEDS: APRESOLINE IV (04:41)
[2024-05-26 04:46] LABS: Hematocrit 44.1 % (39.0-52.0); Mean Corpuscular Hgb 29.6 pg (27.0-31.0); Mean Corpuscular Volume 87.2 fL (80.0-94.0); Mean Platelet Volume 10.8 fL (7.4-10.4); Platelet Count 192 10^3/uL (130-400); Red Blood Cell Count 5.06 10^6/uL (4.70-6.10); Red Cell Dist. Width 13.7 % (11.5-14.5); White Blood Cell Count 5.9 10^3/uL (4.8-10.8)
[2024-05-26 05:12] LABS: ALT (SGPT) 234 U/L (0-50); AST (SGOT) 117 U/L (17-59); Albumin 4.2 g/dl (3.5-5.0); Alkaline Phosphatase 51 U/L (38-126); Blood Urea Nitrogen 24 mg/dl (9-20); Calcium 9.6 mg/dl (8.4-10.2); Carbon Dioxide 23 mmol/L (22-30); Chloride 104 mmol/L (98-107); Estimated Creatinine Clearance > 125 ml/min; Glucose 110 mg/dl (70-99); Magnesium 1.9 mg/dl (1.6-2.3); Potassium 3.9 mmol/L (3.5-5.1); Sodium 137 mmol/L (135-145); Total Bilirubin 1.4 mg/dl (0.2-1.3); Total Protein 6.3 g/dl (6.3-8.2); eGFR > 60.00
--- NOTE | 2024-05-26 07:19 | PTCARENOTE ---
pt received from outgoing RN, pt in bed, aaox4, vss, nsr-st, ra, no gtts, independent assist, pending am round by physician, potential dc to home later today.
[2024-05-26 07:30] VITALS: BP 130/93
--- NOTE | 2024-05-26 08:27 | W.PN.HOSP.TC ---
Today's Communication/Plan
-
d/c if OK with cardiology
Assessment / Plan
Assessment / Plan
pt is a 39 year old male
New onset cardiomyopathy/heart failure with mildly reduced ejection fraction--possibly due to alcohol---echocardiogram was done 05/22 in the emergency department EF 40%--adjusting metoprolol and valsartan with parameters--apprec cardiology-- cardiac
cath without obstructive CAD
nonischemic myocardial injury due to acute heart failure--peaked at 0.073
Acute kidney injury--this is likely a combination of Lasix, lisinopril, metoprolol that he received 05/22 in the emergency department along with relative hypotension as a result--s/p small dose of normal saline--resolved back to baseline
Alcohol use--patient states that he drinks a few drinks daily a few nights per week--he says that this is not a daily occurrence and has no issues if he does not drink alcohol--this very well may be the cause of his cardiomyopathy--cont thiamine and
folate--MSAS added with HTN, tachycardia, anxiety, mild tremors--early DTs now resolved--has been getting intermittent ativan
HTN--possibly secondary-- renal artery US neg for stenosis
DVT prophylaxis--Lovenox
CODE STATUS--full code
Anticipated Discharge: Today
Subjective/Interval History
-
Date of Service: May 26, 2024
pt without c/o--would like to go home or at very least participate in GO discussion about his aunt hospitalized here on 4th floor
Objective Data
-
Labs:
Laboratory Results
05/26/24
04:36
WBC 5.9
Hgb 15.0
Hct 44.1
Plt Count 192
Sodium 137
Potassium 3.9
Chloride 104
Carbon Dioxide 23
BUN 24 H
Creatinine 0.6 L
Glucose 110 H
Calcium 9.6
Total Bilirubin 1.4 H
AST 117 H
ALT 234 H
Alkaline Phosphatase 51
Vital Signs:
max temp for 24 hours
05/25/24
23:04
Temp 98.7 F
Vital Signs
Temp Pulse Resp BP Pulse Ox
97.5 F 68 18 130/93 99
05/26/24 07:30 05/26/24 08:00 05/26/24 07:30 05/26/24 07:30 05/26/24 07:30
I&O
05/25/24 05/26/24 05/27/24
06:59 06:59 06:59
Intake Total 480 / 480 900 / 900
Output Total 925 / 925
Balance -445 / -445 900 / 900
Review of Systems
-
All other systems: Reviewed and negative
Physical Exam
-
General: Well Developed, Well Nourished and No Apparent Distress
HEENT: Normocephalic and Atraumatic
Respiratory: Clear to Auscultation; Negative Wheezes or Rhonchi
Cardiac: Regular Rhythm and S1/S2; Negative Murmur
GI: Soft, Nontender, Nondistended and Normal Bowel Sounds
Musculoskeletal: No Clubbing, No Cyanosis and No Edema
Neuro: Awake and Alert
Psych: Calm
[2024-05-26] MEDS: FOLVITE 1 MG PO (08:30)
[2024-05-26] MEDS: TOPROL XL 50 MG PO (08:30)
[2024-05-26] MEDS: VITAMIN B1 100 MG PO (08:30)
--- NOTE | 2024-05-26 09:03 | W.PN.CD ---
Today's Communication / Plan
-
Blood pressure control has improved
Discontinue IV hydralazine
titrate valsartan for additional blood pressure control with discharged on valsartan 80 mg a day starting tomorrow
Continue current beta-tammy dosing
Can consider addition of Farxiga 10 mg a day if affordable. Med list caution with alcohol abuse. Appears affordable with coupon based on case management
Not using spironolactone at the current time 1 to make sure the patient is compliant with follow-up
I explained importance of medications and follow-up in our office. Patient in agreement overall stable for discharge with additional outpatient follow-up.
.
Patient still with elevated LFTs. Defer to primary team regarding management
Impression / Plan
-
Impression/Plan: 39 y/o male with some shortness in breath, now improved, found to have systolic cardiomyopathy and elevated troponin.
#Cardiomyopathy
-New diagnosis.
-LVEF 40%
-Type unknown, denies family hx SCD or early CAD. Does not use tobacco. Occasionally vapes marijuana. Denies hx HTN, DM, HLD. Check lipids and hgbA1C. Normally active without issue.
-GDMT as able (holding off on ACEI/ARB/ARNI/MRA right now with EDYTA). Will adjust metoprolol to XL, and keep hold parameters.
-does not appear overloaded. Per radiology report today, pulmonary edema resolved.
-UDS + for methadone. If he does have a history of drug abuse, we must be cautious about medication choices (i.e. no beta tammy for cocaine use).
-Cath no obstructive CAD diastolic dysfunction as below
- BB and valsartan
- pricing sglt2i
-Not using spironolactone until patient shows reliable follow-up will be assessed as outpatient.
-
#Abnormal troponin:
-Acute, without chest pain.
-Stuttering pattern without consistent rise/fall.
-0.073 was highest.
-Ischemic evaluation as above.
#-Hypertension. Blood pressure control improving. Component of withdrawal in the may have contributed. No evidence of renal artery stenosis by recent ultrasound.
-Discontinue hydralazine
-Titrate Diovan
-Not using spironolactone at this time until patient shows reliable follow-up
#EDYTA:
-Resolved.
#Elevated LFT's:
-Remains elevated. Management as directed by primary team
#ETOH:
-Chroni, reports ETOH 4-5 days per week with 2-3 mixed drinks.
-He will now require absolute EtOH abstinence.
-Concerns regarding withdrawal improved as discussed with primary team
Subjective/Interval History:
Feeling much improved todya
DATA:
Cath May 24 2024: CONCLUSIONS:
1. Right dominant circulation with an anterior origin of the RCA that is difficult to cannulate and no coronary artery disease.
2. Significant diastolic dysfunction with discrepant filling pressures (LVEDP = 15 mmHg, PCWP = 24 mmHg, A wave to 29 mmHg) without significant valvular disease.
3. Preserved systolic function (cardiac index = 2.62 L/min/m�).
4. Mild, postcapillary pulmonary hypertension (mean PA = 30 mmHg, cardiac output = 5.78 L/min, PVR = 1.04 Whitlock units).
5. Significant peripheral arterial resistance (SVR = 1785 dynes*seconds*cm^-5).
6. Paroxysmal supraventricular tachycardia, terminated with metoprolol.
Transthoracic Echocardiogram, 05/23/2024:
CONCLUSIONS
Mild to moderately reduced left vVentricular systolic function.
Estimated Left ventricular ejection fraction is 40% .
Mild mitral regurgitation.
Trace tricuspid regurgitation.
Physical Exam
Vital Signs/Labs
Vital Signs
Temp Pulse Resp BP Pulse Ox
97.5 F 68 18 130/93 99
05/26/24 07:30 05/26/24 08:00 05/26/24 07:30 05/26/24 07:30 05/26/24 07:30
05/25/24 05/26/24 05/27/24
06:59 06:59 06:59
Actual Weight 96.1 kg 95.6 kg
05/26/24 04:36
05/26/24 04:36
PT 12.6 Sec (11.4-14.6) 05/24/24 17:44
INR 0.89 05/24/24 17:44
APTT 23.0 Sec (23.4-35.0) L 05/24/24 17:44
Magnesium 1.9 mg/dl (1.6-2.3) 05/26/24 04:36
Triglycerides 65 mg/dl (10-149) 05/24/24 02:37
LDL Cholesterol, Calc 130 mg/dl 05/24/24 02:37
VLDL Cholesterol, Calc 13 mg/dl (0-30) 05/24/24 02:37
HDL Cholesterol 90 mg/dl 05/24/24 02:37
Free T4 1.11 ng/dl (0.78-2.19) 05/24/24 02:37
05/23/24
09:14
[id number] Pept 804
LAB Results
05/23/24 05/23/24 05/23/24
09:14 15:30 21:15
Troponin I 0.053 H* 0.048 H* 0.046 H*
05/24/24 05/25/24
02:37 09:18
Troponin I 0.058 H* D 0.039 H*
Physical Exam
Constitutional: No acute distress
Cardiovascular: Rhythm & rate is regular
Respiratory: Wheeze Absent
GI: Soft
Neuro/Psych: Alert
Data Reviewed
-
Date of Service: May 26, 2024
Medical Decision Making: Reviewed Test Results
Echo: Report Reviewed by me
Medical Tests (PFT, Pathology etc): Report Reviewed by me
Labs: Labs Reviewed by me
[2024-05-26] MEDS: DIOVAN 40 MG PO (09:45)
--- NOTE | 2024-05-26 09:53 | PTCARENOTE ---
Pt discharged home, RN reviewed discharged instructions and medications, all questions and concern addressed during time of discussion. IV and tele pack removed from the pt, belongings from the room returned to the pt. Pt was escorted out by RN.
--- NOTE | 2024-05-26 15:29 | W.DCSUMMARY ---
Discharge Summary
Discharge Data
Date of Admission: 05/23/24
Date of Discharge: 05/26/24
-
Pending Results: No
Hospital Course
Primary care physician : Bruak Vogt
Principal Discharge diagnosis : New onset cardiomyopathy/congestive heart failure with mildly reduced ejection fraction, nonischemic myocardial injury, acute kidney injury resolved, acute alcohol use with mild withdrawal symptoms/delirium tremens,
essential hypertension
Chronic Discharge diagnosis : None on admission
Hospital Course : Patient was a 39-year-old male who was seen in the emergency department on May 22, 2024 for chest tightness and shortness of breath. During his workup in the emergency department he was found to have a depressed ejection
fraction of 40% and thought to be having new onset congestive heart failure. Patient was given diuretics and KRISTIAN inhibitor as well as referred for admission. He left AGAINST MEDICAL ADVICE stating that he had a meeting for work that he had to be
at. He returned on May 23, 2024 for admission.
Problem #1: New onset cardiomyopathy/congestive heart failure with mildly reduced ejection fraction. Associated nonischemic myocardial injury. This was thought to be due to alcohol. He was started on metoprolol and valsartan with parameters. He
did have a cardiac catheterization which did not show any obstructive coronary artery disease. Troponins were followed and checked and they peaked at 0.073 with subsequent decline. He has been instructed to follow-up with cardiology as an
outpatient. Goal-directed medical therapy will be introduced in a stepwise fashion as an outpatient based on his blood pressures and ability to follow-up.
Problem #2: Acute kidney injury. This was thought to be due to a combination of Lasix, lisinopril, metoprolol that he received on the day that he left AGAINST MEDICAL ADVICE along with relative hypotension as a result. Patient received IV fluids
and his creatinine returned to normal.
Problem #3: Acute alcohol use with mild withdrawal symptoms/delirium tremens. This was thought to be the cause of his cardiomyopathy. He has been instructed to avoid alcohol at all costs. He did have mild tremors, diaphoresis, hypertension and
tachycardia but did not show any hallucinations or belligerence. Patient did agree to eventually stay in the hospital until discharge. He was given occasional IV Ativan/oral Ativan as needed for both anxiety and withdrawal symptoms. He is much
improved at this time.
Problem #4: Essential hypertension. Patient's blood pressure was elevated during his hospitalization. He felt that it was due to him having to stay in the hospital. Renal artery ultrasound was done and negative for any stenosis. There were
concerns for early withdrawal from alcohol as a cause of the blood pressure being up. He did receive standing hydralazine IV and metoprolol. He was given a dose of valsartan and will be discharged on valsartan and metoprolol.
Patient is stable for discharge home at this time. If there are any questions regarding this dictation or his hospital stay, please and hesitate to call. Our office number is [phone].
Time for discharge 32 minutes.
Procedure findings :
CARDIAC CATH CONCLUSIONS:
1. Right dominant circulation with an anterior origin of the RCA that is difficult to cannulate and no coronary artery disease.
2. Significant diastolic dysfunction with discrepant filling pressures (LVEDP = 15 mmHg, PCWP = 24 mmHg, A wave to 29 mmHg) without significant valvular disease.
3. Preserved systolic function (cardiac index = 2.62 L/min/m�).
4. Mild, postcapillary pulmonary hypertension (mean PA = 30 mmHg, cardiac output = 5.78 L/min, PVR = 1.04 Whitlock units).
5. Significant peripheral arterial resistance (SVR = 1785 dynes*seconds*cm^-5).
6. Paroxysmal supraventricular tachycardia, terminated with metoprolol.
ECHOCARDIOGRAM CONCLUSIONS:
Mild to moderately reduced left vVentricular systolic function.
Estimated Left ventricular ejection fraction is 40% .
Mild mitral regurgitation.
Trace tricuspid regurgitation.
Discharge Plan
-
Patient Disposition: Home (Routine Discharge)
Discharge Diagnosis/Procedures: New onset cardiomyopathy, status post cardiac cath, acute kidney injury, alcohol use with mild withdrawal symptoms, essential hypertension
Condition: Good
Diet: 2 Gram Sodium
Activity: As tolerated
Driving Restrictions: As prior to admission
Bathing Restrictions: None
Specialty Instructions: Weigh Daily- Call MD for wt gain/loss 3 lbs overnight/5 lbs in 1 week
Instructions: *PCP/Other Supervisor Molding Heart Failure Instructions
Stand Alone Forms: DC Instructions- Cath/EP Lab
Referrals:
Michell Funes CRNP [Specified Professional Personl] - 06/22/24 10:40 am
Burak Vogt MD [Family Provider] - in less than 1 week
Additional Discharge Medication Instructions: start valsartan 80 mg daily TOMORROW 05/27/24
Prescriptions:
New
metoprolol succinate 50 mg Tablet Extended Release 24 Hr
50 mg PO BID Qty: 60 0RF
valsartan 40 mg Tablet
80 mg PO DAILY Qty: 60 0RF
folic acid 1 mg Tablet
1 mg PO DAILY Qty: 0 0RF
thiamine mononitrate (vit B1) 100 mg Tablet
100 mg PO DAILY Qty: 0 0RF
Discontinued
lisinopril 5 mg Tablet
5 mg PO DAILY
metoprolol tartrate 25 mg Tablet
12.5 mg PO BID
Discharge Orders:
Discharge Patient (As Directed); Ordered 05/26/24
Ordered By: Abigail Maldonado
Discharge Date and Time
Discharge Date/Time: 05/26/24 11:21
Print Language: AMHARIC
--- NOTE | 2024-05-28 11:31 | W.HF.CON ---
Heart Failure
- LV Function
Left ventricular function study result: LV Ejection fraction 36-40%
Ejection Fraction Percentage: 40
- ARNI
Patient already on ARNI: No
Heart Failure ARNI Contraindication: Acute Renal Failure
- ACEI/ARB
Patient already on ACEI/ARB: Yes
- Beta Ruben
Patient already on Evidence Based Beta Ruben: Yes
- Mineralocorticord Receptor Antagonist
Patient already on MRA: No
Heart Failure MRA Contraindication: Acute Renal Insufficiency, Potentially Non-compliant
- SGLT-2 Inhibitor
Patient already on SGLT-2 Inhibitor: No
Heart Failure SGLT-2 Inhibitor Contraindication: Patient Refusal
- NYHA CHF Classification
NYHA CHF Classification Level: Class III - Symptoms w/ min exertion, interferes w/ nml daily activity
- ACC/AHA Stage
ACC/AHA Stage: Stage C: Symptomatic Heart Failure
== END 2024-05-26 11:21 | disposition home or self-care (01) | DRG 287 ==
LOC: IVU 10:44
PROVIDERS: Internal Medicine Cardiovascular Disease; Nurse Practitioner; ADMITTING PHYSICIAN Internal Medicine; EMERGENCY PHYSICIAN Emergency Medicine; FAMILY PHYSICIAN Family Medicine
PROC: 4A023N8 Measurement of Cardiac Sampling and Pressure, Bilateral, Percutaneous Approach (ICD-10-PCS; 2024-05-23)
PROC: B2111ZZ Fluoroscopy of Multiple Coronary Arteries using Low Osmolar Contrast (ICD-10-PCS; 2024-05-23)
DX: I42.9 Cardiomyopathy, unspecified (principal); F10.239 Alcohol dependence with withdrawal, unspecified; I47.19 Other supraventricular tachycardia; N17.9 Acute kidney failure, unspecified; I50.20 Unspecified systolic (congestive) heart failure; I5A Non-ischemic myocardial injury (non-traumatic); I27.29 Other secondary pulmonary hypertension; I10 Essential (primary) hypertension
CPT/HCPCS: 71046; 80048; 80053; 80061; 80306; 80307; 82010; 82077; 82977; 83036; 83735; 83880; 84100; 84439; 84443; 84484; 85025; 85027; 85610; 85730; 93005; 93460; 93975; 96374; 99152; 99285; C1894; J0153; Q9967

== ENCOUNTER 2024-05-30 06:16 | Emergency (ER) | payer BC, SELFPAY ==
[2024-05-30] VITALS (7 sets, daily range): BP systolic 140–172; BP diastolic 113–128; BMI 30.4
[2024-05-30 06:51] LABS: % Basophils 0.5 % (0-2); % Eosinophils 1.1 % (0-6); % Immature Granulocytes 0.3 % (0-0.5); % Lymphocytes 20.1 % (20.5-51.1); % Monocytes 12.6 % (1.7-9.3); % Neutrophils 65.4 % (42.2-75.2); Absolute Eosinophils 0.1 10^3/uL (0-0.7); Absolute Lymphocytes 1.6 10^3/uL (1.2-3.4); Absolute Neutrophils 5.2 10^3/uL (1.4-6.5); Hemoglobin 14.2 g/dL (13.0-18.0); Mean Corpuscular Hgb 29.6 pg (27.0-31.0); Mean Corpuscular Volume 89.6 fL (80.0-94.0); Mean Platelet Volume 10.9 fL (7.4-10.4); Nucleated Red Blood Cells % 0 % (-); Platelet Count 193 10^3/uL (130-400); Red Cell Dist. Width 13.6 % (11.5-14.5); White Blood Cell Count 7.9 10^3/uL (4.8-10.8)
--- NOTE | 2024-05-30 07:02 | ED.GENMED ---
History of Present Illness
General
Chief Complaint: Cardiac Symptoms
Source: patient
Exam Limitations: none
Time Seen by Provider: 05/30/24 06:32
Nursing documentation reviewed up to this point in time: agreed with
History of Present Illness
History of Present Illness:
Patient discharged from the hospital 3 days ago after being admitted and treated for new onset cardiomyopathy, presents to ED secondary to recurrent shortness of breath, especially with any exertion over the past 2 days. Patient does admit to
having had a glass or 2 of martini, the night before onset of his symptoms. Patient denies chest pain. Denies nausea or vomiting. Denies fever. Denies coughing. Denies leg pain or swelling. Patient has taken his medications, i.e. valsartan and
metoprolol, as prescribed. Patient was not discharged home with any water pills.
Past History
Past History
ED Past Medical History: GERD
ED Past Surgical History: Other (Bilateral jaw surgery)
Social History
Tobacco: Vaping
Alcohol: Occasional
Drug: Marijuana
Personal:
Living: with family
Employment: Employed
Family History
Family History: Negative CAD or Sudden
Review of Systems
Review of Systems
Allergies reviewed?: Yes
All Other Systems: ROS reviewed and negative except as documented in HPI and ROS
Constitutional: Reports no symptoms; Denies fever
Respiratory: Reports trouble breathing; Denies cough
Cardiac: Reports no symptoms; Denies chest pain
ABD/GI: Reports no symptoms; Denies vomiting or diarrhea
: Reports no symptoms
Musculoskeletal: Reports no symptoms; Denies edema
Skin: Reports no symptoms
Neurological: Reports no symptoms
Phy Exam
Physical Exam
Physical Exam:
Physical Exam
General: mild distress, not acutely ill. afebrile
Head: nc/at. eomi
Neck: supple. normal range of motion.
Heart: s1/s2 regular rate and rhythm, no murmur.
Lungs: no acute respiratory distress. diminished breath sounds bilaterally
Abdomen: normal bowel sounds. not tender.
Neuro: alert and oriented x 3. no focal neurological deficits
Skin: no rash
Psychiatric: well kept. interactive and cooperative
Extremities: no edema. no calf tenderness.
Scores
Heart Failure Risk
Heart Failure Risk Score: Yes
History of Stroke or TIA: No
History of intubation for respiratory distress: No
Heart rate on ED arrival >/= 110: No
SaO2 <90% on arrival on room air: No
HR >/=110 during 3min walk test (or too ill to perform test): No
ECG has acute ischemic changes: No
Urea >/=12mmol/L (BUN 33.6mg/dL): No
Serum CO2>/=35mmol/L: No
Troponin I or T elevated to IA Level (0.4mg/dL): No
NT-proBNP >/=5,000ng/L (5,000pg/ml): No
HF Risk Score: 0
Admission Status: LOW RISK 2.8% Consider discharge to home with f/u visit to PCP/[facility]
Course
Orders/Labs/Results
Orders:
Orders
05/30/24 06:25
Electrocardiogram (*1) Urgent
Reason for Study: Other
Other Reason for Exam: Respiratory Distress
Cardiac Monitoring- Treatment ONCE
EKG- Treatment ONCE
IV Insert/Care/Rem.- Treatment PRN
CR Chest - 2 Views Urgent
Comment:
Reason For Exam: respiratory distress
O2 Therapy [RESP] Urgent
Titrate/Wean O2 to maintain O2 sat greater than (%): 93
Special Instructions: TO MAINTAIN CONTINUOUS O2 SATS >/= 93%
Pulse Ox/cont/shift [RESP] Urgent
Quantity: 1
Special Instructions: continuous pulse ox
05/30/24 06:37
Complete Blood Count/With Diff Urgent
Comprehensive Metabolic Panel Urgent
NT-proBNP Urgent
Troponin I Urgent
05/30/24 08:36
Furosemide [Lasix] 40 mg IV NOW STA
Abnormal Lab Results
05/30/24
06:37
MPV 10.9 H fL
(7.4-10.4)
Absolute Monos (auto) 1.0 H 10^3/uL
(0.1-0.6)
Lymphocytes % 20.1 L %
(20.5-51.1)
Monocytes % 12.6 H %
(1.7-9.3)
Creatinine 0.6 L mg/dL
(0.7-1.3)
Glucose 116 H mg/dl
(70-99)
AST 159 H U/L
(17-59)
ALT 336 H U/L
(0-50)
Troponin I 0.095 H* ng/ml
Total Protein 6.0 L g/dl
(6.3-8.2)
05/30/24 06:37
05/30/24 06:37
Vital Signs
Initial and Last Documented VS:
Initial Vital Signs
Temp Pulse Resp BP Pulse Ox
98.1 F 98 26 172/128 98
05/30/24 06:19 05/30/24 06:19 05/30/24 06:19 05/30/24 06:19 05/30/24 06:19
Last Documented Vital Signs
Temp Pulse Resp BP Pulse Ox
98.1 F 89 14 145/119 96
05/30/24 06:19 05/30/24 10:00 05/30/24 10:00 05/30/24 10:00 05/30/24 08:00
MDM/Problems Addressed
MDM/Problems Addressed:
History, exam, along with chest x-ray and blood work, consistent with likely mild fluid overload. Fortunately, patient remains afebrile, hemodynamically stable, without any acute respiratory distress during observation.
Discussed with on-call cvir tech, Dr. Bates, and discussed all findings. Agrees with plan to start Lasix IV in ED, and continue 40 mg daily as an outpatient, along with close follow-up with cardiology as an outpatient. Cardiology office will
make an arrangement for follow-up.
After patient given Lasix IV, patient with significant diuresis, i.e. greater than 1 L urine, with significant improvement in symptoms. Patient feels comfortable going home at this time, with aforementioned treatment plan.
*EKG
Interpreted by ED Provider?: Yes
EKG Intrepretation Date: 05/30/24
Heart Rate: 97
Rate: normal
Rhythm: sinus
[place]: normal axis
Ischemia: T-wave inversion
*Critical Care Note
Total Time (30-74mins, 75-104mins- exclusive of procedures): Not Applicable
ED Attending Note
-
Portions of this chart may have been created with voice recognition software.� Occasional wrong word or��sound alike� substitutions may have occurred due to the inherent limitations of voice recognition software.
Discharge Plan
Departure
Patient Disposition: Home (Routine Discharge)
Date of Disposition: 05/30/24
Time of Disposition: 10:57
Patient with high blood pressure during this ER visit?: Yes
Condition: Fair
Discharge Problem:
Fluid overload
Instructions: *CBC Heart Failure Instructions
Prescriptions:
New
furosemide [Lasix] 40 mg tablet
40 mg PO DAILY Qty: 20 0RF
No Action
metoprolol succinate 50 mg Tablet Extended Release 24 Hr
50 mg PO BID Qty: 60 0RF
valsartan 40 mg Tablet
80 mg PO DAILY Qty: 60 0RF
folic acid 1 mg Tablet
1 mg PO DAILY Qty: 0 0RF
thiamine mononitrate (vit B1) 100 mg Tablet
100 mg PO DAILY Qty: 0 0RF
Referrals:
Ino Bates MD [Active] -
UNKNOWN - PT DOES,NOT KNOW [Family Provider] -
Activity Restrictions/Additional Instructions:
As discussed, please follow-up with your primary care physician and/or cvir tech for further evaluation and treatment. Your prescription has been sent electronically to [facility] pharmacy in [place].
Interventions
Interventions:
*Risk Screen - Suicide Last Done: 05/30/24 06:19
*General Assessment Last Done: 05/30/24 06:27
*Neglect/Abuse Screening Last Done: 05/30/24 06:19
*ED- Fall Risk Assessment Last Done: 05/30/24 06:27
*ED COVID-19 Vaccine History Last Done: 05/30/24 06:27
*Nursing Disposition Last Done: 05/30/24 11:09
ED- Pulmonary Assessment Last Done: 05/30/24 07:13
ED- Cardiac Assessment Last Done: 05/30/24 07:13
Discharge Date and Time
Discharge Date/Time: 05/30/24 11:09
Print Language: MACEDONIAN
[2024-05-30 07:08] LABS: ALT (SGPT) 336 U/L (0-50); AST (SGOT) 159 U/L (17-59); Albumin 3.9 g/dl (3.5-5.0); Alkaline Phosphatase 63 U/L (38-126); Blood Urea Nitrogen 17 mg/dl (9-20); Calcium 8.6 mg/dl (8.4-10.2); Carbon Dioxide 25 mmol/L (22-30); Chloride 106 mmol/L (98-107); Estimated Creatinine Clearance > 125 ml/min; Glucose 116 mg/dl (70-99); Potassium 3.9 mmol/L (3.5-5.1); Sodium 139 mmol/L (135-145); Total Bilirubin 1.1 mg/dl (0.2-1.3); eGFR > 60.00
[2024-05-30 07:17] LABS: NT-proBNP 2980 pg/ml; Troponin I 0.095 ng/ml
--- NOTE | 2024-05-30 07:20 | EDRN ---
provider notified of critical value troponin and elevated BP Readings
[2024-05-30] MEDS: LASIX 40 MG IV (08:40)
== END 2024-05-30 11:09 | disposition home or self-care (01) ==
LOC: EMR 06:16
PROVIDERS: EMERGENCY PHYSICIAN Emergency Medicine
DX: E87.70 Fluid overload, unspecified (principal); I42.9 Cardiomyopathy, unspecified; K21.9 Gastro-esophageal reflux disease without esophagitis; F17.290 Nicotine dependence, other tobacco product, uncomplicated
CPT/HCPCS: 99283; 96374; 71046; 80053; 83880; 84484; 85025; 93005

== ENCOUNTER 2024-07-25 00:48 | Emergency (ER) | payer BC, SELFPAY ==
[2024-07-25 00:56] VITALS: BP 160/118
--- NOTE | 2024-07-25 01:52 | ED.GENMED ---
History of Present Illness
General
Chief Complaint: Skin Surface Trauma
Time Seen by Provider: 07/25/24 01:52
History of Present Illness
History of Present Illness:
TIME OF INITIAL ENCOUNTER: 1:55 AM
HPI: Prior to arrival, the patient was using a mandolin slicing vegetables. He cut the skin on the volar aspect of the right thumb. There was rather significant bleeding. He is not on any anticoagulation or antiplatelets. There was no other
injury. He was concerned because the bleeding would not stop.
EXAM:
GENERAL: Well appearing in no distress
HEENT: Moist oral mucosa
NEUROLOGIC: Excellent strength all extremities, no obvious coordination deficits
PSYCHIATRIC: Appropriate mental status, normal insight and judgement
EXTREMITIES: There are 2 alejandra-shaped avulsions of skin with brisk bleeding to the volar aspect of the right thumb
SKIN: No rash, no lesions
NUMBER AND COMPLEXITY OF PROBLEMS ADDRESSED AT THE ENCOUNTER
� Chronic conditions affecting care: History of cardiomyopathy
� Acute Exacerbation and/or Progression of Chronic Illness: This is an acute problem
� Differential Diagnosis includes: Skin avulsion, laceration, no evidence for foreign body
AMOUNT AND/OR COMPLEXITY OF DATA TO BE REVIEWED AND ANALYZED
� I performed an independent evaluation of and my interpretation is:
EKG:
CT:
X-rays:
Laboratory Studies:
Other:
� Review of other/old records: I reviewed records, the patient was admitted with new onset cardiomyopathy/CHF with a EF of 40% etiology felt related to alcohol use
� Clinical information was obtained by an independent historian: I spoke to jonathan� at bedside
� Prescriptions/Medications Considered but not given:
� Further testing considered but not performed:
RISK OF COMPLICATIONS AND/OR MORBIDITY OR MORTALITY OF PATIENT MANAGEMENT
� Social determinants of health affecting care: Lives at home
� Discussion with other providers:
� Escalation of care including admission/observation vs risk of discharge considered: The wound was initially irrigated and I personally irrigated the wound additionally. Mild bleeding persisted. I used TXA soaked Surgicel and
then placed pressure dressing which caused excellent hemostasis
ANY OTHER UPDATES:
Past History
Past History
ED Past Medical History: GERD
ED Past Surgical History: Other (Bilateral jaw surgery)
Social History
Tobacco: Vaping
Alcohol: Occasional
Drug: Marijuana
Personal:
Living: with family
Employment: Employed
Family History
Family History: Negative CAD or Sudden
Phy Exam
Physical Exam
Physical Exam:
See HPI
Course
Orders/Labs/Results
Orders:
Orders
07/25/24 02:05
Tranexamic Acid 1,000 mg .ROUTE .STK-MED ONE
Vital Signs
Initial and Last Documented VS:
Initial Vital Signs
Temp Pulse Resp BP Pulse Ox
37.2 C 90 16 160/118 96
07/25/24 00:56 07/25/24 00:56 07/25/24 00:56 07/25/24 00:56 07/25/24 00:56
Last Documented Vital Signs
Temp Pulse Resp BP Pulse Ox
37.2 C 90 16 160/118 96
07/25/24 00:56 07/25/24 00:56 07/25/24 00:56 07/25/24 00:56 07/25/24 00:56
*Critical Care Note
Total Time (30-74mins, 75-104mins- exclusive of procedures): Not Applicable
ED Attending Note
-
Portions of this chart may have been created with voice recognition software.� Occasional wrong word or��sound alike� substitutions may have occurred due to the inherent limitations of voice recognition software.
Discharge Plan
Departure
Patient Disposition: Home (Routine Discharge)
Date of Disposition: 07/25/24
Time of Disposition: 02:15
Patient with high blood pressure during this ER visit?: Yes
Discharge Problem:
Avulsion of skin
Prescriptions:
No Action
metoprolol succinate 50 mg Tablet Extended Release 24 Hr
50 mg PO BID Qty: 60 0RF
valsartan 40 mg Tablet
80 mg PO DAILY Qty: 60 0RF
folic acid 1 mg Tablet
1 mg PO DAILY Qty: 0 0RF
thiamine mononitrate (vit B1) 100 mg Tablet
100 mg PO DAILY Qty: 0 0RF
furosemide [Lasix] 40 mg tablet
40 mg PO DAILY Qty: 20 0RF
Referrals:
Burak Vogt MD [Family Provider] -
Activity Restrictions/Additional Instructions:
I used TXA soaked Surgicel and a pressure dressing which seems to have stopped the bleeding. Leave this on until the evening and then you can slowly take it off. If it seems to stick you can use some water to help remove it. If there is
rebleeding you could put additional pressure with a gauze and then use a Band-Aid. You can also use antibiotic ointment tomorrow when you take the dressing off.
Interventions
Interventions:
*Risk Screen - Suicide Last Done: 07/25/24 00:56
*General Assessment Last Done: 07/25/24 01:35
*Neglect/Abuse Screening Last Done: 07/25/24 00:56
*ED- Fall Risk Assessment Last Done: 07/25/24 00:56
*ED COVID-19 Vaccine History Last Done: 07/25/24 00:56
*Nursing Disposition Last Done: 07/25/24 02:30
ED-Skin Assessment Last Done: 07/25/24 01:35
Discharge Date and Time
Print Language: ROMANIAN
== END 2024-07-25 02:30 | disposition home or self-care (01) ==
LOC: EMR 00:48
PROVIDERS: EMERGENCY PHYSICIAN Emergency Medicine; FAMILY PHYSICIAN Family Medicine
DX: S61.011A Laceration without foreign body of right thumb without damage to nail, initial encounter (principal); W45.8XXA Other foreign body or object entering through skin, initial encounter; Y93.G1 Activity, food preparation and clean up; F17.290 Nicotine dependence, other tobacco product, uncomplicated
CPT/HCPCS: 99282

== ENCOUNTER → 2024-09-07 13:45 | Outpatient (REF) | payer BC, SELFPAY | LOC: HWRCS 13:45 | PROVIDERS: ATTENDING PHYSICIAN Internal Medicine Cardiovascular Disease; FAMILY PHYSICIAN Family Medicine | DX: I42.9 Cardiomyopathy, unspecified (principal); I10 Essential (primary) hypertension; I50.32 Chronic diastolic (congestive) heart failure | CPT/HCPCS: 93306 ==